=== PATIENT | male | born 1975 | race Caucasian/White ===

== ENCOUNTER 2016-08-30 08:57 | Inpatient (IN) | payer BC ==
[~2016-08-30] VITALS: Ht 195.6 cm; Wt 94.3 kg
--- NOTE | ~2016-08-30 | 2DMMODE ---
[facility] [address] [place] [address] 2 D/M-MODE ECHOCARDIOGRAM Name: ANALI VICK Usman Room #: 212-P [facility] IN .R.#: [id number] Admission: 08/30/16 Attend Phys: Kaylan Lopez Discharge: Date of : 75 Date of Service: 08/30/16 1407 Report #: [id number] THIS REPORT FOR: //name// APPROVED REPORT EXAM: Comprehensive 2D, Doppler, and color-flow Echocardiogram Patient Location: Bedside/Room 212 Blood Pressure: 119/78 mmHg HR: 77 bpm Rhythm: NSR Other Information Study Quality: Adequate Indications Acute pericarditis. 2D Dimensions RVDd: 41.27 mm LVEF(%): 54.99 (>50%) IVSd: 11.36 (7-11mm) LVOT Diam: 26.97 (18-24mm) LVDd: 45.51 mm PWd: 10.43 (7-11mm) Ascending Aorta: 38.21 mm LVDs: 32.56 (25-40mm) Aortic Root: 40.00 mm Johnson's LVEF: 54.99 % Volumes Left Atrial Volume (Systole) Single Plane 4CH: 25.96 mL Single Plane 2CH: 61.43 mL LA ESV Index: 20.00 mL/m2 Aortic Valve AoV Peak Patrice.: 1.15 m/s AO Peak Gr.: 5.31 mmHg LV Max P.62 mmHg LV Max: 1.08 m/s Mitral Valve MV PHT: 71.94 ms MV E Max Patrice.: 0.94 m/s E/A Ratio: 1.7 MV A Patrice.: 0.55 m/s MV Decel. Time: 248.07 ms TDI [facility] [address] [place] [address] 2 D/M-MODE ECHOCARDIOGRAM Name: ANALI VICK Room #: 212-P [facility] IN ..#: [id number] Admission: 08/30/16 Attend Phys: Kaylan Lopez Discharge: Date of : 75 Date of Service: 08/30/16 1407 Report #: [id number] E/Lateral E': 9.00 E/Medial E': 8.00 Pulmonary Valve PV Peak Patrice.: 0.67 m/s PV Peak Gr.: 1.78 mmHg Tricuspid Valve TR Peak Patrice.: 1.83 m/s RAP Estimate: 5.00 mmHg TR Peak Gr.: 13.34 mmHg RVSP: 18.00 mmHg Left Ventricle The left ventricle is normal size. There is normal LV segmental wall motion. There is normal left ventricular wall thickness. Left ventricular systolic function is normal. LVEF is 55%. The left ventricular diastolic function is normal. Right Ventricle The right ventricle is normal size. The right ventricular systolic function is normal. Atria The left atrium size is normal. The right atrium size is normal. Aortic Valve The aortic valve is normal in structure. Trace to mild aortic regurgitation. There is no aortic valvular stenosis. Mitral Valve The mitral valve is normal in structure. Trace mitral regurgitation. Tricuspid Valve The tricuspid valve is normal in structure. There is trace tricuspid regurgitation. The right atrial pressure is estimated at 5 mmHg. Estimated PAP is 18mmHg. Pulmonic Valve The pulmonary valve is normal in structure. Trace pulmonic regurgitation. Great Vessels Aortic root is mildly dilated. The ascending aorta is mildly dilated. IVC is normal in size and collapses >50% with inspiration. Pericardium [facility] [address] [place] [address] 2 D/M-MODE ECHOCARDIOGRAM Name: ANALI VICK Room #: 212-P [facility] IN M.R.#: [id number] Admission: 08/30/16 Attend Phys: Kaylan Lopez Discharge: Date of : 75 Date of Service: 08/30/16 1407 Report #: [id number] There is no pericardial effusion. <Conclusion> The left ventricle is normal size. Left ventricular systolic function is normal. LVEF is 55%. The aortic valve is normal in structure. Trace to mild aortic regurgitation. The mitral valve is normal in structure. Trace mitral regurgitation. The tricuspid valve is normal in structure. There is trace tricuspid regurgitation. The right atrial pressure is estimated at 5 mmHg. Estimated PAP is 18mmHg. Aortic root is mildly dilated. <ELECTRONICALLY SIGNED> By: Jonathan Savage MD 08/30/16 1407 140 06 Jonathan Savage MD /INF
--- NOTE | ~2016-08-30 | EKG ---
[address] [place] [address] ELECTROCARDIOGRAM REPORT Name: ANALI VICK Room #: 212-P ADM IN M.R.#: [id number] Admission: 08/30/16 Attend Phys: Kaylan James Discharge: Date of : 75 Report #: [id number] THIS REPORT FOR: //name// [facility] ED Test Date: 2016-08-30 Test Time: 09:10:25 Pat Name: ANALI VICK Department: Room: 212 P Gender: M Registered Physical Therapist: NANCY : 1975 Requested By: Veronica Sterling Order Number: [id number] MD: Francesco Holder Measurements Intervals [place] Rate: 83 P: 73 [place]: 158 QRS: 34 QRSD: 87 T: 48 QT: 358 QTc: 421 Interpretive Statements Sinus rhythm Diffuse ST elevation, consider pericarditis Compare with ECG August 2016 at 09:01 No previous ECG available for comparison Electronically Signed On 08-31-2016 8:15:41 CDT by Francesco Holder [email or web address] <ELECTRONICALLY SIGNED> By: Francseco Holder MD, [facility] 08/31/16 0815 9 9 Francesco Holder MD, [facility] /EPI
--- NOTE | ~2016-08-30 | EKG ---
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
[2016-08-30 08:59] VITALS: BP 132/92
[2016-08-30] MEDS ORDERED: ZYRTEC10 M5 PO (09:17)
[2016-08-30] MEDS ORDERED: FLONASE 0.05%50 MCG NASAL (09:17)
[2016-08-30 09:19] LABS: BASOPHILS 0.3 % (0.0-2.0); EOSINOPHILS 0.4 % (0.0-3.0); HEMATOCRIT 45.5 % (42.0-52.0); HEMOGLOBIN 15.5 gm/dL (14.0-18.0); LYMPHOCYTES 10.9 % (24.0-44.0); MCH 31.4 pg (26.0-34.0); MCV 92.2 fL (80.0-100.0); MONOCYTES 11.2 % (1.0-8.0); PLATELET COUNT 259 thou/uL (150-400); POLYS 77.2 % (36.0-66.0); RBC 4.93 mil/uL (4.50-6.00); RDW 12.6 % (10.5-14.5)
[2016-08-30 09:20] LABS: MANUAL DIFF NO
[2016-08-30 09:33] LABS: ANION GAP 9 mmol/L (7-16); BUN 16 mg/dL (7-18); CALCIUM 9.6 mg/dL (8.5-10.1); CHLORIDE 100 mmol/L (98-107); CO2 27 mmol/L (21-32); CREATININE 1.1 mg/dL (0.6-1.3); GLUCOSE 106 mg/dL (70-99); POTASSIUM 4.1 mmol/L (3.5-5.1); SODIUM 136 mmol/L (136-145)
[2016-08-30 09:38] LABS: ALBUMIN 4.2 g/dL (3.4-5.0); ALKALINE PHOSPHATASE 88 U/L (46-116); SGOT 30 U/L (15-37); SGPT 42 U/L (30-65); TOTAL BILIRUBIN 1.4 mg/dL (<0.1-1.0); TOTAL PROTEIN 7.8 g/dL (6.4-8.2); TROPONIN-I < 0.04 ng/mL (<0.04-0.07)
[2016-08-30 10:18] LABS: CK-MB MASS < 0.5 ng/mL (<0.5-3.6)
[2016-08-30] MEDS ORDERED: MOBIC15 MG PO (10:20)
[2016-08-30 10:50] VITALS: BP 119/78
[2016-08-30 19:44] VITALS: BP 123/78
[2016-08-30 23:15] VITALS: BP 113/74
[2016-08-31 04:05] VITALS: BP 95/57
[2016-08-31 08:45] VITALS: BP 119/76
[2016-08-31] MEDS ORDERED: IBUPROFEN 600600 M1 PO ×2 (08:48→11:35)
[2016-08-31 11:39] VITALS: BP 119/76
[2016-08-31 14:28] VITALS: BP 119/76
== END 2016-08-31 13:03 | disposition home or self-care (01) | DRG 316 ==
LOC: ER 08:57 → 2N 10:02 → EROBS 10:02 → 2N 11:31
PROVIDERS: Emergency Medicine; Physician Assistant
DX: I30.1 Infective pericarditis (principal); E78.00 Pure hypercholesterolemia, unspecified; B97.89 Other viral agents as the cause of diseases classified elsewhere; Z82.49 Family history of ischemic heart disease and other diseases of the circulatory system; Z79.899 Other long term (current) drug therapy
CPT/HCPCS: 10081